=== PATIENT | female | born 1980 | race Caucasian/White ===

== ENCOUNTER 2019-10-10 12:06 | Emergency (ER) | payer OTHER ==
[2019-10-10 12:19] VITALS: BP 117/77
--- NOTE | 2019-10-10 12:45 | UC ---
Complaint Female HPI - HPI Summary HPI Summary: 38 year old female s/p C section of twin delivery ~5 months ago presents with c /o vaginal swelling, itching, redness of vuvla x 1-2 days. Itching x ~ 4 days. no menses since childbirth, not concerned about STDs as not sexually active in months. Denies discharge. no abdominal pain. no GI symptoms, no urinary symptoms. - History Of Current Complaint Chief Complaint: [facility] Stated Complaint: BURNING URINATION Time Seen by Provider: 10/10/19 12:44 Hx Obtained From: Patient ?: No Onset/Duration: Lasting Days Timing: Constant Severity Initially: Moderate Severity Currently: Moderate Pain Intensity: 0 Pain Scale Used: 0-10 Numeric Character: Burning Aggravating Factor(s): Movement, Urination Alleviating Factor(s): Position Associated Signs And Symptoms: Positive: Genital Swelling. Negative: Fever, Back Pain, Vaginal Bleeding/Discharge, Vaginal Discharge, Nausea - Allergies/Home Medications Allergies/Adverse Reactions: Allergies Allergy/AdvReac Type Severity Reaction Status Date / Time No Known Allergies Allergy Verified 10/10/19 12:19 PMH/Surg Hx/FS Hx/Imm Hx Previously Healthy: Yes - Surgical History Surgical History: Yes Surgery Procedure, Year, and Place: 1 - Family History Known Family History: Positive: Non-Contributory - Social History Alcohol Use: Occasionally Substance Use Type: None Smoking Status (MU): Never Smoked Tobacco Review of Systems All Other Systems Reviewed And Are Negative: Yes Constitutional: Positive: Negative Skin: Positive: Other - vaginal swelling Genitourinary: Positive: Dysuria, Vaginal/Penile Burning, Vaginal/Penile Itching , Vaginal/Penile Tenderness. Negative: Hematuria, Frequency, Urgency, Vaginal/ Penile Discharge, Ulceration/Lesion, Abnormal Bleeding Motor: Positive: Negative Physical Exam Triage Information Reviewed: Yes Appearance: Well-Appearing, No Pain Distress, Well-Nourished Vital Signs: Initial Vital Signs Temp 98.5 F 10/10/19 12:12 Pulse 72 10/10/19 12:12 Resp 18 10/10/19 12:12 BP 117/77 10/10/19 12:12 Pulse Ox 98 10/10/19 12:12 Vital Signs Reviewed: Yes Eyes: Positive: Conjunctiva Clear ENT: Positive: Hearing grossly normal Pelvic Exam: Positive: No Masses. Negative: Active Bleeding, Discharge, Lesions , Mass, Tender Adnexa, Tender Uterus, Other - mild swelling of the labia minor with moderate erythema, no lesions, wounds, sores, normal external vagainl canal , minimal psychilogic discharge in vaginal vault. no odor, no cervical motion tenderenss. no bleeding, normal os Neurological Exam: Normal Psychological Exam: Normal Complaint Female Dx - Course Course Of Treatment: Probable Yeast infection based on symptoms: Diflucan: Breast-Feeding Considerations Fluconazole is present in breast milk at concentrations similar to maternal plasma concentrations (Emilia 1994; Sasha 1993). The relative dose (RID) of fluconazole is 5% to 21% when calculated using the highest breast milk concentration located and compared to an therapeutic dose of 3 to 12 mg/kg/day. In general, is considered acceptable when the RID is <10%; when an RID is >25% should generally be avoided (Kendell 2016; Junaid 2000). The RID of fluconazole was calculated using a milk concentration of 4.1 mcg/mL, providing an estimated daily infant dose via breast milk of 0.62 mg/kg/day. This milk concentration was obtained following maternal administration of oral fluconazole 200 mg daily for 18 days; the apparent elimination half-life of fluconazole in breast milk was 26.9 hours (Sasha 1993). Serious adverse events in infants have not been reported following maternal use of fluconazole for nipple or breast candidiasis (Peter 1997; Omid 2002; Jonah 2011); flushed cheeks, GI upset, loose stools, mucous feces, and somnolence have been reported in breastfed infants (Jonah 2011). Although the mobile qa tester recommends that caution be exercised when administering fluconazole to women, existing recommendations state that fluconazole is considered compatible with when used in usual recommended doses (WHO 2002). Treatment of women with nipple or breast candidiasis with oral fluconazole is common, especially in persistent or recurring infections (Rajendra 2001). Untreated brian nipple or breast infections may be painful for the mother and can contribute to premature weaning (Rajendra 2001). The amount of fluconazole contained in the breast milk is not sufficient to treat mucocutaneous candidiasis in the (Emilia 1994; Sasha 1993); concurrent treatment of both the and mother may be required (Omid 2002). - Diflucan orally x 1 dose to help treat infection - Cultures will return within 24 hours, will call if treatment is different - Monistat cream to external genitalia to help with symptoms. - No sexually activity until completed symptom free - REturn with increased pain, abdominal pain, bleeding, urinary symptoms. - Differential Dx/Diagnosis Differential Diagnosis/HQI/PQRI: Urinary Tract Infection Provider Diagnosis: Vulvovaginal candidiasis Discharge ED - Sign-Out/Discharge Documenting (check all that apply): Patient Departure All imaging exams completed and their final reports reviewed: No Studies - Discharge Plan Condition: Good Disposition: HOME Prescriptions: Fluconazole 150 MG TAB* [Diflucan 150 MG TAB*] 150 mg PO ONCE #1 tablet Miconazole TOPICAL CREAM 2%* [Monistat 2%*] 1 applic TOPICAL BID #1 tube Patient Education Materials: Yeast Infection (ED) Referrals: [facility] [Outside] No Primary Care Phys,NOPCP [Primary Care Provider] - Additional Instructions: Diflucan: Breast-Feeding Considerations Fluconazole is present in breast milk at concentrations similar to maternal plasma concentrations (Emilia 1995; Sasha 1993). The relative dose (RID) of fluconazole is 5% to 21% when calculated using the highest breast milk concentration located and compared to an therapeutic dose of 3 to 12 mg/kg/day. In general, is considered acceptable when the RID is <10%; when an RID is >25% should generally be avoided (Kendell 2016; Junaid 2000). The RID of fluconazole was calculated using a milk concentration of 4.1 mcg/mL, providing an estimated daily dose via breast milk of 0.62 mg/kg/day. This milk concentration was obtained following maternal administration of oral fluconazole 200 mg daily for 18 days; the apparent elimination half-life of fluconazole in breast milk was 26.9 hours (Sasha 1993). Serious adverse events in infants have not been reported following maternal use of fluconazole for nipple or breast candidiasis (Peter 1997; Omid 2002; Jonah 2011); flushed cheeks, GI upset, loose stools, mucous feces, and somnolence have been reported in breastfed infants (Jonah 2011). Although the mobile qa tester recommends that caution be exercised when administering fluconazole to women, existing recommendations state that fluconazole is considered compatible with when used in usual recommended doses (WHO 2002). Treatment of women with nipple or breast candidiasis with oral fluconazole is common, especially in persistent or recurring infections (Rajendra 2001). Untreated brian nipple or breast infections may be painful for the mother and can contribute to premature weaning (Rajendra 2001). The amount of fluconazole contained in the breast milk is not sufficient to treat mucocutaneous candidiasis in the infant (Emilia 1995; Sasha 1993); concurrent treatment of both the infant and mother may be required (Omid 2002). - Diflucan orally x 1 dose to help treat infection - Cultures will return within 24 hours, will call if treatment is different - Monistat cream to external genitalia to help with symptoms. - No sexually activity until completed symptom free - REturn with increased pain, abdominal pain, bleeding, urinary symptoms. - Billing Disposition and Condition Condition: GOOD Disposition: Home - Attestation Statements Provider Attestation: Per institutional requirements, I have reviewed the chart, however, I was not consulted specifically or made aware of this patient by the midlevel provider. I did not personally evaluate, interact with , or disposition this patient.
== END 2019-10-10 13:55 | disposition home or self-care (01) ==
LOC: UCEAST 12:06
DX: N89.8 Other specified noninflammatory disorders of vagina (principal); R39.89 Other symptoms and signs involving the genitourinary system; R30.0 Dysuria
CPT/HCPCS: 81003; 87480; 87510; 99202; G0463